=== PATIENT | female | born 1995 | race Caucasian/White ===

== ENCOUNTER 2019-04-13 00:03 | Inpatient (IN) ==
[2019-04-13] MEDS ORDERED: LACTATED RINGER'S 1,000 ML IV PRN (00:38)
[2019-04-13] MEDS ORDERED: OXYTOCIN 30 UNITS/500 ML BAG IV PRN ×2 (00:38→06:53)
--- NOTE | 2019-04-13 00:43 | History & Physical Report ---
Date of Service April 13, 2019 Assessment & Plan (1) with 39 completed weeks gestation: fetus category one (2) Normal labor: admit, expectant management. Fetus reassuring. epidural on demand. anticipate . History of Present Illness Chief Complaint: contractions Primary Care Provider: NO PCP Patient is a with IUP at 39 weeks who presents to labor and delivery with contractions. no lof/vb. +fm. complicated by transfer of care from [place] at 30 weeks. labs--A+/ab-/rub equiv,/rprnr/hepb-/hiv-/gc/ct-/gtt nl at 28 weeks/gbs neg/ quad neg Allergies Allergy/AdvReac Type Severity Reaction Status Date / Time No Known Allergies Allergy Verified 04/13/19 00:24 Home Medications Home Medications Medication Instructions Recorded Confirmed Type 1 tab PO DAILY 02/24/19 04/13/19 History vitamin,calcium,uzlpoavl-jhui-pjuwc acid tablet Patient History Social History marital status: marital status details: Chuy Mae (26) [phone] Current Living Situation: Spouse and Family Current Living Situation Comment: no pets current occupational status: unemployed current occupation: homemaker Smoking Status: Never smoker Hx Alcohol Use: No Hx Substance Use: No OB History g1--08/13--sab g2--06/13, 38 weeks, , 6#8oz [employer] History no stds, no abnl paps Review of Systems All systems reviewed & are unremarkable except as noted in HPI & below Physical Exam Constitutional: WD/WN, vitals as above Gastrointestinal (Abdomen): soft, gravid, nt Psychiatric: A+Ox3, euthymic affect Genitourinary: cx--6cm pernursing toco--q2-4 min efm--140s wtih mod variability, accels present, no decels Results & Data Vital Signs (Past 12 Hours) Vital Signs Pulse BP 04/13/19 00:20 71 114/72 Code Status & VTE Plan VTE Prophylaxis Plan VTE Prophylaxis will be ordered: No
[2019-04-13] MEDS ORDERED: fentaNYL citrate 100 MCG/2 ML VIAL ONE (00:51)
[2019-04-13] MEDS ORDERED: ePHEDrine sulfate 50 MG/ML AMP ONE (00:52)
[2019-04-13] MEDS ORDERED: BUPIVACAINE 0.25% 30 ML VIAL ONE (00:52)
[2019-04-13] MEDS ORDERED: fentaNYL 2MCG/ML ROPIV 1.25MG/ML 100 ML BAG EPI ONE (00:52)
[2019-04-13 01:04] LABS: Hematocrit (blood only) 34.6 % (37-47); Mean Corpuscular Hemoglobin 33.3 pg (25-34); Mean Corpuscular Volume 96.1 fL (80-100); Mean Platelet Volume 10.7 fL (7.4-10.4); Platelet Count 161 K/uL (130-400); RDW Coefficient of Variation 12.8 % (11.5-14.5); RDW Standard Deviation 44.3 fL (36.4-46.3); White Blood Count 11.23 K/uL (4.8-10.8)
--- NOTE | 2019-04-13 01:16 | Anesthesiology Consultation ---
Date of Service April 13, 2019 Assessment & Plan (1) Encounter for pre-operative examination: Chart Review Chart Review: Acceptable Risk for Labor Epidural History Height/Weight Height: 5 ft 4 in Weight: 60.425 kg Allergies Allergy/AdvReac Type Severity Reaction Status Date / Time No Known Allergies Allergy Verified 04/13/19 00:24 Medications Home Medications Medication Instructions Recorded Confirmed Last Taken 1 tab PO DAILY 02/24/19 04/13/19 04/11/19 20:00 vitamin,calcium,siotxirj-asbh-favgt acid tablet Past Medical History Medical History Miscarriage Varicella vaccination Past Family History Family History Father Hypertension Grandmother (Maternal) Hypertension Grandmother (Paternal) Osteoporosis Past Surgical History Surgical History S/P sinus surgery S/P wisdom tooth extraction Social History Smoking Status: Never smoker Hx Alcohol Use: No Hx Substance Use: No Physical Exam Vital Signs Last Vital Signs Temp 36.7 C 04/13/19 00:28 Pulse 71 04/13/19 00:28 Resp 16 04/13/19 00:28 BP 114/72 04/13/19 00:28 Testing Laboratory Results 04/13/19 00:52
[2019-04-13 01:38] LABS: Mean Corpuscular Hgb Conc 34.7 g/dL (32-36)
[2019-04-13] MEDS ORDERED: NALOXONE HCL 1 MG in SODIUM CHLORIDE 0.9% 1000ML 1,000 ML IV PRN (01:42)
[2019-04-13] MEDS ORDERED: ePHEDrine sulfate 50 MG/ML AMP IV PRN (01:42)
[2019-04-13] MEDS ORDERED: fentaNYL 2MCG/ML ROPIV 1.25MG/ML 100 ML BAG EPI PRN (01:42)
[2019-04-13] MEDS ORDERED: ONDANSETRON INJ 2 MG/ML 2 ML VIAL IV PRN (01:42)
[2019-04-13] MEDS ORDERED: NALOXONE HCL 0.4 MG/1 ML VIAL/CARP IV PRN (01:42)
--- NOTE | 2019-04-13 02:24 | Labor Progress Brief Note ---
Date of Service April 13, 2019 Subjective comfortable after epidural Assessment & Plan (1) Normal labor: expectant management. anticipate . fetus category one Physical Exam Constitutional: WD/WN, vitals as above Psychiatric: A+Ox3, euthymic affect Genitourinary: cx--6-7/90/-2 arom--clear toco--q2-5min efm--140s with mod variability, accels present, no decels Results & Data Vital Signs (Past 12 Hours) Vital Signs Temp Pulse Resp BP Pulse Ox 04/13/19 02:18 62 104/61 04/13/19 02:16 68 98 04/13/19 02:14 61 107/62 04/13/19 02:11 63 98 04/13/19 02:09 51 L 97/63 L 04/13/19 02:06 62 88/51 L 100 04/13/19 02:01 65 100 04/13/19 01:56 71 99 04/13/19 01:51 71 99 04/13/19 01:49 72 91/51 L 04/13/19 01:47 67 96/52 L 04/13/19 01:46 71 99 04/13/19 01:45 71 95/53 L 04/13/19 01:43 67 95/53 L 04/13/19 01:41 75 100 04/13/19 01:40 67 96/53 L 04/13/19 01:36 71 98 04/13/19 01:34 73 104/62 04/13/19 01:31 69 100 04/13/19 01:26 69 100 04/13/19 01:21 77 97 04/13/19 00:28 36.7 C 71 16 114/72 04/13/19 00:20 71 114/72
[2019-04-13] MEDS ORDERED: Nursing to Pharmacy Communication ONE (03:50)
[2019-04-13] MEDS ORDERED: OXYCODONE/ACETAMINOPHEN 5mg/325mg TAB PO PRN (04:42)
[2019-04-13] MEDS ORDERED: ACETAMINOPHEN 325 MG TAB PO PRN (04:42)
--- NOTE | 2019-04-13 04:45 | Delivery Summary ---
Vaginal Delivery Summary Date of Service April 13, 2019 Vaginal Delivery Summary Pre-operative Diagnosis: at 39 weeks, labor Post-operative Diagnosis: same Procedure: epidural, arom, , second degree repair EBL: 300cc Anesthesia: epidural Procedure: The patient pushed for over one contraction to deliver a viable male infant in camilo position. The nose and mouth were bulb suctioned on the perineum and the rest of the infant was then delivered without difficulty. The baby was vigorous. The nose and mouth were again bulb suctioned and the was placed in the maternal abdomen for drying and attention. Cord was clamped and cut at one minute of life. Cord blood obtained. Placenta delivered spontaneous, intact with a three vessel cord. Cervix/sulci/rectum were intact. A second degree perineal laceration was repaired in the normal standard [facility] ion. Hemostasis obtained with dilute pitocin and fundal massage. Apgars were 8/9. Mother and baby doing well at the end of the delivery.
--- NOTE | 2019-04-13 05:10 | Anesthesia Procedure Note ---
Date of Service April 13, 2019 Anesthesia Post Epidural Note Vital Signs Vital Signs: Temp Pulse Resp BP Pulse Ox 36.7 C 74 18 110/61 98 04/13/19 03:49 04/13/19 04:53 04/13/19 03:49 04/13/19 04:53 04/13/19 04:36 Pain Intensity Lower Abdomen: Pain Intensity: 10 Notes Mental Status: alert / awake / arousable and participated in evaluation Nausea / Vomiting: adequately controlled Pain: adequately controlled Airway Patency, RR, SpO2: stable & adequate BP & HR: stable & adequate Hydration State: stable & adequate Neuraxial Anesthesia: was administered and sensory block is resolving Anesthetic Complications: no major complications apparent Epidural: Removed without complications and With tip intact
[2019-04-13] MEDS: IBUPROFEN 600 MG TAB PO PRN ×4 (06:11→19:27)
[2019-04-13] MEDS ORDERED: HYDROCORTISONE ACETATE 25 MG SUPP PR PRN (06:53)
[2019-04-13] MEDS ORDERED: MEASLES, MUMPS & RUBELLA VIRUS VIAL SQ ONE (06:53)
[2019-04-13] MEDS ORDERED: BENZOCAINE 20% AER SPR 82.5 GM CAN EXT PRN (06:53)
[2019-04-13] MEDS ORDERED: bisacodyL 10 MG SUPP PR PRN (06:53)
[2019-04-13] MEDS ORDERED: SUPERCREAM 0.870% 15 GM JAR EXT PRN (06:53)
[2019-04-13] MEDS ORDERED: DIPHTHERIA/TETANUS/PERTUSSIS 0.5 ML SYR/VIAL IM ONE (06:53)
[2019-04-13] MEDS: PRENATAL VITAMIN 1 TAB PO SCH (10:10)
[2019-04-13] MEDS: DOCUSATE SODIUM 100 MG CAP PO SCH ×2 (10:10→21:01)
--- NOTE | 2019-04-14 05:10 | Obstetrical Progress Note ---
Date of Service April 14, 2019 Assessment & Plan (1) : 24 yo s/p VD @ 39w2d Right calf pain, likely cramping - no erythema, no cords, negative Papo's, symmetric calf size - continue to monitor if pain continues or changes then consider RLE duplex ultrasound to rule out DVT - no shortness of breath, no pleuritic chest pain, nl VS PPD#1 - GBS negative, Blood Type A+ - MMR given - Feels well today. Eating well, voiding well, ambulating well. - Pain well controlled. - Routine post care - After discharge will have [address] Robles. Supervising Physician Co-Signing Physician Notes Resident Physician Supervision Note: I was present with Dr. Parker during the history and exam. I discussed the case with the resident and agree with the findings and plan as documented in the note. Any exceptions or clarifications are listed here: doing well. ff 2 down. nt. LE with bilateral muscle soreness, no cord, no erythema, equal in size. pt feels her leg discomfort is bilateral and muscle aches. has been at rest and once moving if persists to have a complaint will need duplex LE. explained DVT risk with preg and pp. Nursing made aware to inquire with pt about sx prior to d/c. instructions reviewed. f/u 6wks pp check. Documented By: Nhung Peter MD, FACOG Subjective Doing well this morning. Pain is well controlled while taking Motrin. is going well. She was having some right calf pain when walking. States bleeding is improving. Review of Systems Review of Systems: Denies fever, chills, sweats Denies shortness of breath, difficulty breathing, chest pain, palpitations, chest pressure. Denies breast pain. Denies dysuria. Denies headache. Physical Exam Physical Exam: General: Alert, oriented. No acute distress. Cardiac: Regular rate and rhythm, no murmurs/rubs/gallops. Respiratory: Clear to auscultation anterior and posteriorly, no wheezes/rales/rhonchi. No increased work of breathing. Symmetrical chest rise. No respiratory distress. Abdomen: Soft, nontender, nondistended. Bowel sounds present. Uterus: Uterine fundus firm, palpable 1 cm below umbilicus. Lower Extremities: No lower extremity edema or swelling. Papo's negative bilaterally. Tender to deep calf palpation on R, no erythema or palpable cords Results & Data Vital Signs (Past 12 Hours) Vital Signs Temp Pulse Resp BP 04/14/19 03:20 36.4 C L 68 18 104/67 04/13/19 23:25 36.7 C 80 18 104/68 04/13/19 19:30 36.5 C 81 18 105/68 PG Care Time/CCT Total # of Minutes Spent Total Time Spent with Patient: Total time spent is greater than 50% in coordination of care (as documented) at patient's floor/unit and/or counseling patient: Resident Activity Tracking Resident Involvement: Resident Care Provided Care Provided: OB Delivery
[2019-04-14 06:26] LABS: Hemoglobin 11.5 g/dL (12.0-16.0)
[2019-04-14] MEDS: PRENATAL VITAMIN 1 TAB PO SCH (08:56)
[2019-04-14] MEDS: DOCUSATE SODIUM 100 MG CAP PO SCH (08:56)
[2019-04-14] MEDS: IBUPROFEN 600 MG TAB PO PRN (10:46)
[2019-04-14] MEDS ORDERED: bisacodyL 5 MG TABEC PO SCH (20:00)
== END 2019-04-14 13:10 | disposition home or self-care (01) | DRG 807 ==
LOC: OPB 00:03 → 4S1 00:06 → 4S2 08:30